=== PATIENT | female | born 1945 | race Caucasian/White ===

== ENCOUNTER 2021-07-14 04:53 | Emergency (ER) | payer MEDICARE, SELFPAY ==
[2021-07-14 04:54] VITALS: BP 159/76; PULSE 103; RESP 18; TEMP 36.6; O2SAT 96; BMI 28.1
--- NOTE | 2021-07-14 05:18 | RAD_ITS ---
EXAM: XR CHEST, 1 VIEW : 1945 CLINICAL INDICATION: cp TECHNIQUE: Frontal view of the chest. This report was created using [employer] report generation technology. COMPARISON: None. FINDINGS: LUNGS AND PLEURAL SPACES: Unremarkable. No consolidation or edema. No pneumothorax. No effusion. HEART: Unremarkable. Cardiac silhouette not enlarged. MEDIASTINUM: Moderate hiatal hernia. Cardiomediastinal silhouette is otherwise unremarkable. BONES/JOINTS: Unremarkable. SOFT TISSUES: Unremarkable. RAD/Chest 1 View (Portable) IMPRESSION: No acute findings in the chest. at 0537 Reported and signed by: Agustin Osullivan MD Electronically Signed: gAustin Osullivan MD at 5:36 EST ,
--- NOTE | 2021-07-14 05:19 | EKG12_ITS ---
Test Reason : CP Blood Pressure : / mmHG Vent. Rate : 087 BPM Atrial Rate : 087 BPM P-R Int : 142 ms QRS Dur : 074 ms QT Int : 374 ms P-R-T Axes : 032 -07 028 degrees QTc Int : 450 ms Sinus rhythm with marked sinus arrhythmia Nonspecific T wave abnormality Abnormal ECG Confirmed by JAYCOB LINCOLN, NEO ([id number]), newspaper copy editor TADEO HINSON ([id number]) on 07/18/2021 10:57:35 AM Referred By: MASTER Confirmed By:NEO DEVRIES MD
[2021-07-14] MEDS: 0.9% Normal Saline 1,000 ML 150 ML IV (05:28)
[2021-07-14] MEDS: fentaNYL 100 MCG/2 ML Ampul 12.5 MCG IV (05:28)
--- NOTE | 2021-07-14 05:39 | EX.ED.DYSGE1 ---
HPI History of Present Illness Chief Complaint: Chest Pain Detail of Chief Complaint: Vomiting, abdominal pain, chest pain Informant: patient Onset/Context/Timing Onset: Yesterday Current Severity: Mild Maximum Severity: Moderate Narrative Narrative: Patient presents via EMS with vomiting, abdominal pain, chest pain. She reports developing vomiting and diarrhea around 6:30 PM last evening. She states she was still vomiting when she called the squad this morning. She had taken 8 mg of Zofran just prior to squads arrival. She reports having a large hiatal hernia and is complaining of pain in the epigastrium and up through the midportion of her chest. She denies fever. [facility] Medical History Chronic GERD Colitis Hemorrhoid Hiatal hernia Hyperlipidemia Hypertension IBS (irritable bowel syndrome) Kidney disease Home Medications esomeprazole magnesium [Nexium] 40 mg PO DAILY 07/14/21 [History Last Taken Unknown] loratadine [Claritin] 5 mg PO DAILY 07/14/21 [History Last Taken Unknown] ondansetron 4 mg PO Q8H PRN #10 tab 07/14/21 [Rx Last Taken Unknown] rosuvastatin 40 mg PO DAILY 07/14/21 [History Last Taken Unknown] valsartan-hydrochlorothiazide 1 tab PO DAILY 07/14/21 [History Last Taken Unknown] Allergy/AdvReac Type Severity Reaction Status Date / Time chlorpromazine Allergy Anaphylaxis Verified 07/14/21 05:02 [From Thorazine] codeine Allergy Anaphylaxis Verified 07/14/21 05:02 morphine Allergy Anaphylaxis Verified 07/14/21 05:02 Penicillins Allergy Hives Verified 07/14/21 05:02 Sulfa (Sulfonamide AdvReac Vomiting Verified 07/14/21 05:02 Antibiotics) Social History Smoking Status: Never smoker ROS ROS ED Constitutional Constitutional ED: Denies chills or fever(s) Eyes Eyes: Denies change in vision ENT ENT ED: Denies sore throat Cardiovascular Cardiovascular: Reports chest pain Respiratory/Chest Respiratory/Chest: Denies cough or dyspnea Gastrointestinal Gastrointestinal: Reports abdominal pain, diarrhea, nausea and vomiting Genitourinary Genitourinary ED: Denies dysuria Musculoskeletal Musculoskeletal: Denies back pain Integumentary Denies rash Neurologic Neurologic: Denies headache(s) or weakness Allergic/Immunologic Allergic/Immunologic ED: Denies urticaria EXAM Physical Exam Const Vital Signs: 07/14/21 04:54 07/14/21 05:06 07/14/21 06:05 Temperature 97.8 F Temperature Source Temporal Pulse Rate 103 H 84 Respiratory Rate 18 16 Respiratory Effort Normal Non-Labored Blood Pressure 159/76 H 146/79 H Blood Pressure Mean 103 101 Pulse Ox 96 94 Oxygen Delivery Method Room Air Room Air Positive well nourished and well developed General Appearance ED: well developed HEENT Reports moist mucous membranes Eyes PERRL and EOMs intact bilaterally Neck supple Chest Wall inspection of chest normal and palpation of chest normal Resp normal respiratory effort and clear to auscultation bilaterally Cardio regular rate and regular rhythm GI non-tender Auscultation: hypoactive bowel sounds Palpation: soft Extremity normal to inspection Neuro oriented x3 Sensorium / Orientation: alert Psych mental status grossly normal Skin no rashes or lesions noted MDM MDM MDM Narrative Medical decision making narrative: Patient is placed on property assessment monitor. EKG, chest x-ray, lab work obtained. She is given a small dose of fentanyl and IV Protonix along with IV fluids. Lab Data Attestation: I reviewed the patient's lab results. Labs: Laboratory Results - last 24 hr 07/14/21 07/14/21 05:05 05:05 WBC 7.0 RBC 4.09 L Hgb 11.7 L Hct 33.6 L MCV 82.2 MCH 28.6 MCHC 34.8 RDW Std Deviation 41.4 RDW Coeff of Rod 13.9 Plt Count 180 MPV 10.6 Immature Gran % (Auto) 0.600 Neut % (Auto) 89.5 H Lymph % (Auto) 5.1 L Coleman % (Auto) 3.6 Eos % (Auto) 0.9 Baso % (Auto) 0.3 Absolute Neuts (auto) 6.3 Absolute Lymphs (auto) 0.36 L Nucleated RBC % 0 Sodium 139 Potassium 3.3 L Chloride 108 H Carbon Dioxide 20.0 L Anion Gap 11 BUN 30 H Creatinine 1.05 H Estim Creat Clear Calc 46.19 Est GFR (MDRD) Af Amer 66 Est GFR (MDRD) Non-Af 54 L BUN/Creatinine Ratio 28.6 H Glucose 112 H Calcium 9.1 Total Bilirubin 2.40 H Direct Bilirubin 0.32 H AST 21 ALT 34 Alkaline Phosphatase 63 Troponin I High Sens 5 Total Protein 7.5 Albumin 3.9 Globulin 3.6 Lipase 306 Radiography Chest X-Ray - ED: 1 View, Read by ED Physician and Chronic Changes Diagnostic Testing: Clinical Impression(s) from Imaging Studies Chest X-Ray 07/14/21 05:18 IMPRESSION: No acute findings in the chest. at 0537 Reported and signed by: Agustin Osullivan MD Electronically Signed: Agustin Osullivan MD at 5:36 EST , EKG Initial EKG: Attestation: I personally reviewed and interpreted this EKG as follows: Interpretation: Sinus Rhythm (Sinus 87. Nonspecific T wave flattening. No acute ST change.) Treatment and Re-Evaluation Comments:: On repeat evaluation patient is improved although nausea is starting to return. Lab work reviewed. White count is normal. Chemistry studies reveal mild dehydration. Lipase is normal. Troponin is normal at 5. Patient is given a dose of Zofran here. She will be written for Zofran ODT for home as they currently only have the tablets. Return instructions are provided. She is to continue her Nexium. Discharge Plan Triage Chief Complaint: Chest Pain ED Provider: Swathi Madsen Dx/Rx/DC Orders Clinical Impression: Gastroenteritis, Hernia, hiatal Instructions: ED Gastroenteritis, Noninfectious, ED Hiatal Hernia Prescriptions: New ondansetron 4 mg tablet,disintegrating 4 mg PO Q8H PRN (Reason: nausea and vomiting) Qty: 10 RF: 0 No Action rosuvastatin 40 mg tablet 40 mg PO DAILY RF: 0 esomeprazole magnesium [Nexium] 40 mg capsule,delayed release(DR/EC) 40 mg PO DAILY RF: 0 valsartan-hydrochlorothiazide 160-25 mg tablet 1 tab PO DAILY RF: 0 loratadine [Claritin] 10 mg Tablet 5 mg PO DAILY RF: 0 Primary Care Provider: Aishwarya Isaac Referrals: Aishwarya Isaac MD [Primary Care Provider] - 3-5 Days if not improving Disposition Disposition: Home, Self Care
[2021-07-14 05:45] LABS: Absolute Lymphocyte Count 0.36 X10^3/uL (0.83-4.51); Absolute Neutrophil Count 6.3 X10^3/uL (2.0-7.7); Basophil# 0.02 X10^3/uL; Basophil% 0.3 % (0-1); Eosinophil# 0.06 X10^3/uL; Eosinophils% 0.9 % (0-5); Hematocrit 33.6 % (37-47); Hemoglobin 11.7 g/dL (12.0-15.0); Lymphocyte # 0.36 X10^3/ul (0.83-4.51); Lymphocyte % 5.1 % (19-41); Mean Corp Hgb Conc 34.8 g/dL (32-36); Mean Corpuscular Hgb 28.6 pg (27.0-32.0); Mean Corpuscular Volume 82.2 fL (81-99); Mean Platelet Vol. 10.6 fl (6.2-12.0); Monocyte# 0.25 X10^3/uL; Monocyte% 3.6 % (0-10); NRBC Flagged by Analyzer 0 % (0-5); Neutrophil % 89.5 % (47-70); POSITIVE DIFFERENTIAL YES; Platelet Count 180 K/mm3 (150-450); RBC Distribution Width CV 13.9 % (11.6-14.6); RBC Distribution Width SD 41.4 fl (35.1-43.9); Red Blood Count 4.09 M/mm3 (4.2-5.4)
[2021-07-14 05:51] LABS: Differential Indicated SCAN CRITERIA MET
[2021-07-14 05:59] LABS: AST(SGOT) 21 U/L (15-37); Alanine Aminotransfer ALT/SGPT 34 U/L (13-56); Albumin, Serum 3.9 g/dL (3.2-5.0); Alkaline Phosphatase 63 U/L (45-117); Anion Gap 11 (5-15); BUN 30 mg/dL (7-18); BUN/Creat Ratio 28.6 RATIO (10-20); Bilirubin, Direct 0.32 mg/dL (0.00-0.30); Calcium,Total 9.1 mg/dL (8.5-10.1); Chloride 108 mmol/L (98-107); Creatinine, Serum 1.05 mg/dL (0.55-1.02); EST Glomerular Filtration Rate 54 mL/min (>60); Est Glom Filt Rate - Afr Amer 66 mL/min (>60); Estimated Creatinine Clearance 46.19 ml/min; Globulin 3.6 g/dL (2.2-4.2); Glucose 112 mg/dL (74-106); Lipase 306 U/L (73-393); Potassium 3.3 mmol/L (3.5-5.1); Protein, Total 7.5 g/dL (6.4-8.2); Sodium Level 139 mmol/L (136-145); Troponin-I HS 5 pg/mL (3.0-54.0)
[2021-07-14 06:05] VITALS: BP 146/79; PULSE 84; RESP 16; O2SAT 94
[2021-07-14] MEDS: Ondansetron 4 MG/2 ML Vial IV (06:34)
[2021-07-14 07:00] VITALS: BP 146/80; PULSE 85; RESP 19; O2SAT 95
== END 2021-07-14 07:11 | disposition home or self-care (01) ==
PROVIDERS: Emergency Provider Emergency Medicine; PCP Internal Medicine; Visit Provider Emergency Medicine
DX: K52.9 Noninfective gastroenteritis and colitis, unspecified (principal); K44.9 Diaphragmatic hernia without obstruction or gangrene; I10 Essential (primary) hypertension; E78.5 Hyperlipidemia, unspecified; K58.9 Irritable bowel syndrome, unspecified; Z87.19 Personal history of other diseases of the digestive system; Z79.899 Other long term (current) drug therapy
CPT/HCPCS: 71045; 80048; 80076; 83690; 84484; 85025; 93005; 96365; 96375; 99285; A4216; J2405